=== PATIENT | male | born 1985 | race Caucasian/White ===

== ENCOUNTER → 2020-09-21 00:42 | Outpatient (CLI) | payer BC, SELFPAY ==
[2020-09-21 20:46] LABS: SARS-CoV-2 RNA PCR Negative
== END ==
PROVIDERS: Visit Provider Internal Medicine Gastroenterology
DX: Z01.812 Encounter for preprocedural laboratory examination (principal); Z20.822 Contact with and (suspected) exposure to COVID-19
CPT/HCPCS: C9803; U0003; U0005

== ENCOUNTER 2020-09-24 01:19 | Day surgery (SDC) | payer BC, SELFPAY ==
[2020-09-10 13:10] VITALS: BMI 34.3
[2020-09-24 08:19] VITALS: BP 121/74; PULSE 59; RESP 16; TEMP 35.5; O2SAT 98; BMI 35.4
[2020-09-24] MEDS: LACTATED RINGERS 1,000 ML 150 ML IV CONT (08:26)
--- NOTE | 2020-09-24 09:28 | P.PNAN_ITS ---
Anes - Initial Pre Proc Eval Procedure: Operation Date: 09/24/20 09:30 Proposed Procedures p Esophagogastroduodenoscopy - Reece Murguia MD Date/Time: 09/24/20 09:28 Surgeon: Reece Murguia MD Pre Op Diagnosis: GErD Patient Data Age: 34 Gender: M Height: 6 ft 1 in Weight: 121.6 kg Last Vital Signs Temp 96 F L 09/24/20 08:19 Pulse 59 L 09/24/20 08:19 Resp 16 09/24/20 08:19 BP 121/74 09/24/20 08:19 Pulse Ox 98 09/24/20 08:19 Allergies Allergy/AdvReac Type Severity Reaction Status Date / Time No Known Allergies Allergy Mild Verified 09/24/20 08:18 Home Medications Medication Instructions Recorded Confirmed Type esomeprazole magnesium [Nexium] 20 mg PO DAILY 09/10/20 09/24/20 History Patient hx anesthesia problems: none Family hx anesthesia problems: none [facility] Past Medical History Medical History (Updated 09/24/20 @ 09:24 by Buck Moore MD) GERD (gastroesophageal reflux disease) Social History Social History (Updated 09/10/20 @ 13:09 by Kirsty Prieto RN) Smoking packs per day: 0.5 Smoking cigarettes per day: 10.0 Years smoked: 10 Smoking pack-years: 5.00 Smoking status: Former smoker Tobacco type: cigarettes Second hand tobacco smoke exposure: No Alcohol intake: current Substance use: never Substance use type: does not use Living arrangements: with family Gender identity (if verbalized by the patient): Male Sexual Orientation (if Verbalized by the Patient): Straight or Heterosexual Spiritual care concerns: No Agree to blood products: Yes Anes - Eval Final PreProcedure Day of Procedure 09/24/20 09:28 Patient weight: obese Heart: regular rate and rhythm Lungs: clear to auscultation Airway: Mallampati scale class II Neurological: alert and oriented Last oral intake: >/= 8 hours ASA classification: III Emergent: no Anesthetic plan: proceed Anesthesia type and monitoring: general GIVS and standard monitoring Informed Consent: The patient's anesthetic plan and its attendant risks and benefits were discussed with the patient/family/POA. Questions were solicited and answers provided to the satisfaction of the patient/family/POA.
--- NOTE | 2020-09-24 09:37 | PM.HPGS ---
History of Present Illness History of Present Illness Consent: Risks, benefits, and alternatives have been discussed and questions answered. Patient agrees to proceed with procedure. Chief complaint: GErD Narrative: Andrew Villafana is a 34 year old male with gerd only partially controlled with nexium, never had egd Review of Systems Constitutional: Constitutional: Denies headache(s) and Denies weakness Eyes: Eyes: Denies blurry vision ENT: Reports Normal hearing present, Denies headache(s) and Denies neck pain Cardiovascular: Cardiovascular: Denies chest pain and Denies dyspnea Respiratory: Respiratory: Denies dyspnea Gastrointestinal: Gastrointestinal: Reports no additional gastrointestinal complaints Genitourinary: Genitourinary: Denies dysuria Musculoskeletal: Musculoskeletal: Denies neck pain Integumentary/Breasts: Skin/Breast: Denies dry skin Neurologic: Reports Normal hearing present, Denies headache(s) and Denies weakness Psychiatric: Psychiatric: Denies anxiety Endocrine: Endocrine: Denies change in body appearance Hematologic/Lymphatic: Hematologic/Lymphatic: Denies easy bleeding Allergic/Immunologic: Allergic/Immunologic: Denies urticaria PMFSH Past Medical History Medical History (Updated 09/24/20 @ 09:38 by Reece Murguia MD) GERD (gastroesophageal reflux disease) Social History Social History (Updated 09/10/20 @ 13:09 by Kirsty Prieto RN) Smoking packs per day: 0.5 Smoking cigarettes per day: 10.0 Years smoked: 10 Smoking pack-years: 5.00 Smoking status: Former smoker Tobacco type: cigarettes Second hand tobacco smoke exposure: No Alcohol intake: current Substance use: never Substance use type: does not use Living arrangements: with family Gender identity (if verbalized by the patient): Male Sexual Orientation (if Verbalized by the Patient): Straight or Heterosexual Spiritual care concerns: No Agree to blood products: Yes Meds Home Medications and Allergies Home Medications Medication Instructions Recorded Confirmed Type esomeprazole magnesium [Nexium] 20 mg PO DAILY 09/10/20 09/24/20 History Allergies Allergy/AdvReac Type Severity Reaction Status Date / Time No Known Allergies Allergy Mild Verified 09/24/20 08:18 Vital Signs Vital Signs - 24 hr 09/24/20 08:19 Temperature 96 F L Pulse Rate 59 L Respiratory Rate 16 Blood Pressure 121/74 Pulse Oximetry 98 Exam Const: General: comfortable and no acute distress HENMT: General nose exam: Normal nares present Eyes: General: appearance normal, both eyes and all related structures Neck: Neck: no JVD Resp: Auscultation: clear to auscultation bilaterally Cardio: Rate: regular rate Rhythm: regular rhythm GI: Inspection: non-distended GI Palp: Yes Soft to palpation Skin: General skin exam: normal color Neuro: General: gait normal Speech: normal speech Extrem: General: normal to inspection Psych: Mental Status: mental status grossly normal Assessment and Plan Assessment and plan (1) GERD (gastroesophageal reflux disease): Code(s): K21.9 - Gastro-esophageal reflux disease without esophagitis Status: Inactive Assessment and Plan: egd with bx, already on ppi
[2020-09-24 09:58] VITALS: BP 103/59; PULSE 58; RESP 22; O2SAT 98
[2020-09-24 10:08] VITALS: BP 115/70; PULSE 62; RESP 18; O2SAT 98
[2020-09-24 10:18] VITALS: BP 118/66; PULSE 59; RESP 20; O2SAT 99
== END 2020-09-24 10:26 | disposition home or self-care (01) ==
PROVIDERS: PCP Emergency Medicine; Visit Provider Internal Medicine Gastroenterology
PROC: 0DJ08ZZ Inspection of Upper Intestinal Tract, Via Natural or Artificial Opening Endoscopic (ICD-10-PCS; CPT 43235; principal; 2020-09-24 09:30)
DX: K21.9 Gastro-esophageal reflux disease without esophagitis (principal); K44.9 Diaphragmatic hernia without obstruction or gangrene; Z87.891 Personal history of nicotine dependence; E66.9 Obesity, unspecified; Z68.35 Body mass index [BMI] 35.0-35.9, adult
CPT/HCPCS: 43239; 88305; C9803; J2704; J7120; U0003; U0005

== ENCOUNTER 2023-06-18 13:21 | Emergency (ER) | payer BC, SELFPAY ==
--- NOTE | ~2023-06-18 | XR_ITS ---
XR forearm RT 2V 06/18/2023 14:06 INDICATION: Right arm pain after fall PROCEDURE: 2 views right forearm COMPARISON: 05/23/2005 FINDINGS: Fracture, dislocation or subluxation is not identified. The soft tissues appear within norm al limits. No foreign bodies are identified. IMPRESSION: 1: NO ACUTE BONE OR JOINT ABNORMALITY IDENTIFIED. Reviewed, dictated and finalized at location B. [employer]
[2023-06-18 13:30] VITALS: BP 131/102; PULSE 103; RESP 16; TEMP 37; O2SAT 97
--- NOTE | 2023-06-18 13:32 | ED.UPPEXIN ---
HPI - Extremity Injury (Upper) General Chief Complaint: Extremity Injury, Upper Stated Complaint: Injured arm Time Seen by Provider: 06/18/23 13:32 Source: patient Mode of arrival: ambulatory Limitations: no limitations History of Present Illness HPI narrative: 37-year-old male presents with pain to right forearm and right elbow. And states he slipped on ice this morning and fell on to right forearm. When moving right forearm patient has radiation of pain into right elbow. Ambulatory with steady gait. Denies his head. Denies LOC. All systems reviewed and negative except as noted above. Related Data Home Medications Medication Instructions Recorded Confirmed esomeprazole magnesium 20 mg 20 mg PO DAILY 09/10/20 09/24/20 capsule,delayed release (Nexium) Allergies Allergy/AdvReac Type Severity Reaction Status Date / Time No Known Allergies Allergy Mild Verified 09/24/20 08:18 Review of Systems Review of Systems: CONSTITUTIONAL: Denies fever, chills, or sweats. EYES: Denies visual changes, redness, or discharge. ENT: Denies rhinorrhea, congestion, sore throat, or otalgia. CARDIOVASCULAR: Denies chest pain, palpitations, or edema. RESPIRATORY: Denies cough or dyspnea. GASTROINTESTINAL: Denies abdominal pain, nausea, vomiting, or diarrhea. GENITOURINARY: Denies dysuria or hematuria. SKIN: Denies rash or itching. MUSCULOSKELETAL: Reports pain to right forearm. NEUROLOGIC: Denies headache, numbness, or weakness. PSYCHIATRIC: Denies anxiety or depression. All other systems reviewed are negative, except as documented in HPI. [facility] Past Medical History Medical History (Updated 06/18/23 @ 14:31 by Diana Chan NP) GERD (gastroesophageal reflux disease) Social History Social History (Updated 09/10/20 @ 13:09 by Kirsty Prieto RN) Smoking packs per day: 0.5 Smoking cigarettes per day: 10.0 Years smoked: 10 Smoking pack-years: 5.00 Smoking status: Former smoker Tobacco type: cigarettes Second hand tobacco smoke exposure: No Alcohol intake: current Alcohol use details: Drinks socially-rare. Substance use: never Substance use type: does not use Living arrangements: with family Occupation/Education: occupation Gender identity (if verbalized by the patient): Male Sexual Orientation (if Verbalized by the Patient): Straight or Heterosexual Spiritual care concerns: No Agree to blood products: Yes Comments At time of signature, agree with nursing past medical, surgical, social and family history. There is no relevant family history pertinent to the presenting complaint. Exam Narrative: GENERAL: This is a well-nourished, well-developed patient, in no apparent distress. HEAD: normocephalic, atraumatic. EYES: PERRL. Sclera clear/white. Vision is grossly intact. EARS: External ears normal NOSE: External nose normal NECK: Neck supple, non-tender without lymphadenopathy, masses or thyromegaly. CARDIOVASCULAR: Regular rate and rhythm without murmurs, gallops, or rubs. RESPIRATORY: Clear to auscultation. Breath sounds equal bilaterally. No wheezes, rales, or rhonchi. SKIN: warm, Dry, intact with no suspicious lesions or rash, good texture and turgor. NEURO: awake, alert, and oriented to person, place and time. There were no obvious focal neurologic abnormalities. EXTREMITIES: Tenderness on palpation to ulnar aspect right arm. Normal range of motion to right elbow and wrist without tenderness. Distal neurovascularly intact. Course Course Level of Care: Express Care Visit Vital Signs Vital signs: Vital Signs Temperature 37.0 C 06/18/23 13:30 Pulse Rate 103 H 06/18/23 13:30 Respiratory Rate 16 06/18/23 13:30 Blood Pressure 131/102 H 06/18/23 13:30 Pulse Oximetry 97 06/18/23 13:30 Temperature 37.0 C 06/18/23 13:30 Pulse Rate 103 H 06/18/23 13:30 Respiratory Rate 16 06/18/23 13:30 Blood Pressure 131/102 H 06/18/23 13:30 P
== END 2023-06-18 14:32 | disposition home or self-care (01) ==
PROVIDERS: Emergency Provider Nurse Practitioner Family
DX: S56.911A Strain of unspecified muscles, fascia and tendons at forearm level, right arm, initial encounter (principal); W00.0XXA Fall on same level due to ice and snow, initial encounter; Z87.891 Personal history of nicotine dependence; K21.9 Gastro-esophageal reflux disease without esophagitis
CPT/HCPCS: 73090; 99213; G0463

== ENCOUNTER 2025-01-10 12:32 | Emergency (ER) | payer BC, SELFPAY ==
[2025-01-10 12:43] VITALS: BP 124/83; PULSE 80; RESP 16; TEMP 36.5; O2SAT 99
--- NOTE | 2025-01-10 12:50 | ED_ITS ---
HPI - Dental/Oral General Chief complaint: Dental/Oral Stated complaint: JAW SWELLING/PAIN Time Seen by Provider: 01/10/25 12:50 Source: patient Mode of arrival: ambulatory Limitations: no limitations History of Present Illness HPI Narrative: 39-year-old male presents with right lower dental pain for 3 days. Called dentist today and unable to see him for emergency visit. Patient is aware that he has a wisdom tooth where pain is. He was waiting for it to erupt and be pulled. Afebrile. All systems reviewed and negative except as noted above. Related Data Home Medications ?Medication ?Instructions ?Recorded ?Confirmed ?Last Taken ?Type esomeprazole magnesium 20 mg 20 mg PO DAILY 09/10/20 09/24/20 09/23/20 History capsule,delayed release (Nexium) Allergies Allergy/AdvReac Type Severity Reaction Status Date / Time No Known Allergies Allergy Mild Verified 01/10/25 12:56 [facility] Past Medical History Medical History (Updated 01/10/25 @ 12:53 by Diana Chan NP) GERD (gastroesophageal reflux disease) Social History Social History (Updated 09/10/20 @ 13:09 by Kirsty Prieto RN) Smoking packs per day: 0.5 Smoking cigarettes per day: 10.0 Years smoked: 10 Smoking pack-years: 5.00 Smoking status: Former smoker Tobacco type: cigarettes Second hand tobacco smoke exposure: No Alcohol intake: current Alcohol use details: Drinks socially-rare. Substance use: never Substance use type: does not use Living arrangements: with family Occupation/Education: occupation Gender identity (if verbalized by the patient): Male Sexual Orientation (if Verbalized by the Patient): Straight or Heterosexual Spiritual care concerns: No Agree to blood products: Yes Comments At time of signature, agree with nursing past medical, surgical, social and family history. There is no relevant family history pertinent to the presenting complaint. Exam Narrative: GENERAL: This is a well-nourished, well-developed patient, in no apparent distress. HEAD: normocephalic, atraumatic. EYES: PERRL. Sclera clear/white. Vision is grossly intact. EARS: External ears normal NOSE: External nose normal MOUTH: IMPACTED WISDOM TOOTH RIGHT LOWER WITH SURROUNDING ERYTHEMA AND FLUCTUANCE. NECK: Neck supple, non-tender without lymphadenopathy, masses or thyromegaly. CARDIOVASCULAR: Regular rate and rhythm without murmurs, gallops, or rubs. RESPIRATORY: Clear to auscultation. Breath sounds equal bilaterally. No wheezes, rales, or rhonchi. SKIN: warm, Dry, intact with no suspicious lesions or rash, good texture and turgor. NEURO: awake, alert, and oriented to person, place and time. There were no obvious focal neurologic abnormalities. EXTREMITIES: No joint tenderness, effusion, or edema noted. Course Course Level of Care: Express Care Visit Vital Signs Vital signs: Vital Signs Temperature 36.5 C 01/10/25 12:43 Pulse Rate 80 01/10/25 12:43 Respiratory Rate 16 01/10/25 12:43 Blood Pressure 124/83 01/10/25 12:43 Pulse Oximetry 99 01/10/25 12:43 Temperature 36.5 C 01/10/25 12:43 Pulse Rate 80 01/10/25 12:43 Respiratory Rate 16 01/10/25 12:43 Blood Pressure 124/83 01/10/25 12:43 Pulse Oximetry 99 01/10/25 12:43 Reviewed MDM - Dental/Oral MDM Narrative Medical decision making narrative: Will treat right dental abscess with clindamycin. Recommend follow-up with dentist. Patient is well-appearing, nontoxic. Afebrile. Differential Diagnosis Differential diagnosis: Likely gingival abscess, dental caries, toothache and dental abscess Discharge Plan Discharge Clinical Impression: Dental infection Patient Disposition: Home Condition: Stable Instructions: Antibiotic Form, Dental Abscess (ED) Additional Instructions: Take antibiotic as prescribed until gone. Alternate between ibuprofen and Tylenol every 4 hours to treat pain. Follow-up with dentist at next available appointment. Patient Language: Togolese Prescriptions: New clindamycin HCl 300 mg capsule 300 mg PO QID 10 Days Qty: 40 0RF No Action esomeprazole magnesium [Nexium] 20 mg Capsule,Delayed Release(Dr/Ec) 20 mg PO DAILY Follow-up/Referrals: Corby,CLARITA Jones [Primary Care Provider] - Time of Disposition: 12:53
== END 2025-01-10 12:57 | disposition home or self-care (01) ==
PROVIDERS: Emergency Provider Nurse Practitioner Family; PCP Nurse Practitioner Family
DX: K04.7 Periapical abscess without sinus (principal); K21.9 Gastro-esophageal reflux disease without esophagitis; Z87.891 Personal history of nicotine dependence
CPT/HCPCS: 99213; G0463

== ENCOUNTER 2025-04-09 08:33 | Emergency (ER) | payer BC, SELFPAY ==
--- NOTE | 2025-04-09 08:38 | ED_ITS ---
HPI - General Adult General Chief complaint: Syncope Stated complaint: PASSED OUR/BACK&WRIST INJURY/FINGERS TINGLING Source: patient and RN notes reviewed Mode of arrival: ambulatory Limitations: no limitations History of Present Illness HPI narrative: Patient is a 39-year-old male who presents to the [facility] with complaints of syncopal episode. Patient states that he was at the gym with a friend, lifting weights. Patient states that he was squatting with 250 lb weights, which is not his limit. Patient states that he was getting ready to start his second set when he must have had a syncopal episode. Patient does not remember the event/loss of consciousness. Patient states that his friend witnessed the event. Denies prior syncope episodes. Denies any past medical history. Patient denies chest pain or dizziness at this time. He is alert and oriented with no obvious neurological deficits. Patient states that he is experiencing generalized back pain as a result of the syncope. He is also experiencing right wrist pain. States that he has tingling to bilateral hands/fingers. Denies numbness. Related Data Home Medications ?Medication ?Instructions ?Recorded ?Confirmed ?Last Taken ?Type esomeprazole magnesium 20 mg 20 mg PO DAILY 09/10/20 1 06/09/24 09/23/20 History capsule,delayed release (Nexium) Allergies Allergy/AdvReac Type Severity Reaction Status Date / Time No Known Allergies Allergy Mild Verified 04/09/25 08:44 Review of Systems Review of Systems: CONSTITUTIONAL: Denies fever, chills, or sweats. EYES: Denies visual changes, redness, or discharge. ENT: Denies otalgia and sore throat CARDIOVASCULAR: Denies chest pain, palpitations, or edema. RESPIRATORY: Denies cough or dyspnea. GASTROINTESTINAL: Denies abdominal pain, nausea, vomiting, or diarrhea. GENITOURINARY: Denies dysuria or hematuria. SKIN: Denies rash or itching. MUSCULOSKELETAL: Reports back pain and right wrist pain. NEUROLOGIC: Reports syncope. Denies numbness or headache. Pertinent positives per HPI. [facility] Past Medical History Medical History GERD (gastroesophageal reflux disease) Social History Social History Smoking packs per day: 0.5 Smoking cigarettes per day: 10.0 Years smoked: 10 Smoking pack-years: 5.00 Smoking status: Former smoker Tobacco type: cigarettes Second hand tobacco smoke exposure: No Alcohol intake: current Alcohol use details: Drinks socially-rare. Substance use: never Substance use type: does not use Living arrangements: with family Occupation/Education: occupation Gender identity (if verbalized by the patient): Male Sexual Orientation (if Verbalized by the Patient): Straight or Heterosexual Spiritual care concerns: No Agree to blood products: Yes Comments At the time of my signature, I reviewed and agree with the nursing past medical, surgical, social, and family history. There is no relevant family history pertinent to the patient complaint. Exam Narrative: GENERAL: This is a well-nourished, well-developed patient, in no apparent distress. HEAD: normocephalic, atraumatic. EYES: Sclera clear/white. Vision is grossly intact. EARS: External ears normal. Hearing grossly intact. NOSE: External nose normal with no obvious nasal discharge, nares without redness, no rhinorrhea. THROAT: Mucous membranes moist. NECK: Neck supple, non-tender without lymphadenopathy, masses or thyromegaly. CARDIOVASCULAR: Regular rate and rhythm without murmurs, gallops, or rubs. RESPIRATORY: Clear to auscultation. Breath sounds equal bilaterally. No wheezes, rales, or rhonchi. GASTROINTESTINAL: Abdomen soft, non-tender, nondistended. Bowel sounds are active. No hepato-splenomegaly, or palpable masses. No guarding. SKIN: warm, intact with no suspicious lesions or rash, good texture and turgor. NEURO: awake, alert, and oriented to person, place and time. There were no obvious focal neurologic abnormalities. Course Course Level of Care: Express Care Visit Vital Signs Vital signs: Reviewed Transfer Transfered to: [facility] Transportation: Other (Private vehicle, denied EMS) Transfer rationale: Syncop. Appropriate testing and treatment. Accepting physician: MD Fred Medical Decision Making [facility] Narrative Medical decision making narrative: EKG normal sinus. Blood glucose 98 via fingerstick at bedside. Patient presents to the [facility] Care after a syncopal episode. Patient will be transferred to [facility] the ED for appropriate testing and treatment for his complaint. Report was given to Dr. Ibarra who accepted patient for transfer. Differential Diagnosis Differential Diagnosis: Syncope, vasovagal syncope, acute coronary syndrome, NM, dehydration, electrolyte imbalance, hypoglycemia. ECG Data EKG #1: ECG completion date: 04/09/25 ECG completion time: 08:55 Interpretation: Normal sinus rhythm with ventricular rate of 81 beats per minute. Normal axis, normal intervals, no acute ischemic pattern. Critical Care Time Critical Care Time Critical Care Time: No Discharge Plan Discharge Clinical Impression: Syncope Qualifiers: Syncope type: unspecified Qualified Code(s): R55 - Syncope and collapse Patient Disposition: Acute Care Hospital Condition: Stable Additional Instructions: Go directly to [facility] ED. Patient Language: Latvian Prescriptions: No Action esomeprazole magnesium [Nexium] 20 mg Capsule,Delayed Release(Dr/Ec) 20 mg PO DAILY Follow-up/Referrals: Corby,CLARITA Jones [Primary Care Provider, Unknown] Time of Disposition: 08:56
--- NOTE | 2025-04-09 08:42 | ECG_ITS ---
Test Date: 2025-04-09 08:55:15 Measurements Intervals [place] Rate: 81 P: 52 MI: 138 QRS: 81 QRSD: 106 T: 63 QT: 339 QTc: 394 Interpretive Statements SINUS RHYTHM No previous ECG available for comparison Electronically Signed On 04-09-2025 12:31:02 [employer] by Cristino Bryan M.D.
[2025-04-09 08:45] VITALS: BP 142/92; PULSE 89; RESP 16; TEMP 36.8; O2SAT 99
[2025-04-09 09:06] VITALS: BP 141/126; PULSE 79
[2025-04-09 09:07] VITALS: BP 128/85; BP 140/89; PULSE 87; PULSE 97
== END 2025-04-09 09:06 | disposition short-term general hospital (02) ==
PROVIDERS: Emergency Provider Nurse Practitioner; PCP Nurse Practitioner Family
DX: R55 Syncope and collapse (principal); K21.9 Gastro-esophageal reflux disease without esophagitis; Z87.891 Personal history of nicotine dependence
CPT/HCPCS: 82948; 93005; 99213; G0463

== ENCOUNTER 2025-04-09 09:30 | Emergency (ER) | payer BC, SELFPAY ==
[2025-04-09] VITALS (9 sets, daily range): BP systolic 102–147; BP diastolic 69–82; PULSE 70–94; RESP 15–20; TEMP 36.8; O2SAT 99–100
--- NOTE | ~2025-04-09 | CT_ITS ---
EXAMINATION: CT cervical spine wo con COMPARISON: None HISTORY: trauma TECHNIQUE: Axial images were obtained through the spine without IV contrast. Coronal, sagittal reconstruction images were obtained from the axial views. CT scan performed using dose optimization techniques including the following automated exposure control; adjustment of mA and/or kV; use of iterative reconstruction technique. Automatic exposure control was used to reduce radiation dose. Permanent radiation dose record is archived to PACS. FINDINGS: The vertebral heights are intact. No fracture or subluxation. The disc heights are intact. Soft tissues unremarkable. Impression: No acute abnormality. Reviewed, dictated and finalized at location P. LATION WORKER Impression: No acute abnormality.
--- NOTE | ~2025-04-09 | CT_ITS ---
EXAMINATION: CT thoracic spine wo con COMPARISON: None HISTORY: trauma TECHNIQUE: Axial images were obtained through the spine without IV contrast. Coronal, sagittal reconstruction images were obtained from the axial views. CT scan performed using dose optimization techniques including the following automated exposure control; adjustment of mA and/or kV; use of iterative reconstruction technique. Automatic exposure control was used to reduce radiation dose. Permanent radiation dose record is archived to PACS. FINDINGS: Mild to moderate loss of vertebral height throughout, no acute fracture or subluxation. Moderate loss of disc height at T9-10, T10-11, T11-12 and T12-L1 however there is no severe canal or foraminal stenosis identified. Soft tissues unremarkable. Impression: No acute abnormality. Reviewed, dictated and finalized at location P. NE PHARMACOLOGY TECHNICIAN Impression: No acute abnormality.
--- NOTE | ~2025-04-09 | CT_ITS ---
EXAMINATION: CT brain wo con COMPARISON: None HISTORY: trauma TECHNIQUE: Axial images were obtained through the brain without IV contrast. CT scan performed using dose optimization techniques including the following automated exposure control; adjustment of mA and/or kV; use of iterative reconstruction technique. Automatic exposure control was used to reduce radiation dose. Permanent radiation dose record is archived to PACS. FINDINGS: No acute infarct or parenchymal hemorrhage. No abnormal mass or mass effect. No midline shift. No extra-axial fluid collections. No hydrocephalus. . Mastoid air cells unremarkable. Sinuses and orbits unremarkable. No acute fracture. No significant facial or scalp soft tissue swelling evident. No radiopaque foreign body is seen. Impression: 1.No acute intracranial abnormality. Reviewed, dictated and finalized at location P. VIEW DEVELOPER Impression: 1.No acute intracranial abnormality.
--- NOTE | ~2025-04-09 | XR_ITS ---
EXAMINATION: XR chest 2V, 04/09/2025 9:55 DIAMOND MERCHANT HISTORY: syncope NO PRIOR HX COMPARISON: No comparisons available. Technique: 2 views obtained. Findings: The lungs are clear, no effusion. No pneumothorax. Heart is normal size. Mediastinal and hilar contours are within normal limits. Bony thorax no acute abnormality. Impression: No acute cardiopulmonary abnormality. Reviewed, dictated and finalized at location P. OND MERCHANT Impression: No acute cardiopulmonary abnormality.
--- NOTE | 2025-04-09 09:34 | ECG_ITS ---
Test Date: 2025-04-09 09:40:56 Measurements Intervals [place] Rate: 83 P: 59 VA: 136 QRS: 77 QRSD: 97 T: 54 QT: 341 QTc: 402 Interpretive Statements SINUS RHYTHM Compared to ECG 04/09/2025 08:55:15 No significant changes Electronically Signed On 04-09-2025 12:31:30 [employer] by Cristino Bryan M.D.
[2025-04-09 09:53] LABS: Hematocrit 51.8 % (42.0-52.0); Hemoglobin 17.1 g/dL (14.0-18.0); Immature Granulocyte Percent A 0.3 % (0-0.5); Lymphocytes Absolute Auto 1.37 K/mm3 (0.9-3.2); Mean Corpuscular HGB Conc 33.0 g/dl (32-36); Mean Corpuscular Hemoglobin 28.5 pg (26-34); Mean Corpuscular Volume 86.2 fl (80-100); Nucleated Red Blood Cells Absolute Auto 0.000 K/mm3 (0.0-0.012); Nucleated Red Blood Cells Perc 0.0 % (0.0-0.2); Platelet Count Result 257 k/mm3 (150-375); Red Blood Count 6.01 M/mm3 (4.6-6.20); White Blood Count 5.9 K/mm3 (4.5-10.0)
--- OUTSIDE RECORDS SUMMARY | 2025-04-09 10:06 | XMS_ITS | Clinical Summary ---
[facility] Address [address] [place] [address] Care Team Providers Care Machine Ceramic Coater Name Role Phone Lexus Tavarez NP Primary Care Provider [phone] Allergies No known active allergies Medications esomeprazole DR (NexIUM) 40 mg capsule Take 1 capsule (40 mg total) by mouth daily before breakfast Active ergocalciferol (VITAMIN D) 50,000 unit capsule TAKE 1 CAPSULE BY MOUTH ONE TIME PER WEEK 12 capsule 4 Active testosterone cypionate, bulk, 100 % powder 0 5 Active testosterone enanthate, bulk, 100 % powder 0 5 Active testosterone propionate, bulk, powder 0 5 Active benzonatate (TESSALON) 200 mg capsuleIndications :Influenza A Take 1 capsule (200 mg total) by mouth 3 (three) times a day as needed for cough 30 capsule 5 Active albuterol HFA (PROVENTIL HFA,VENTOLIN HFA,PROAIR HFA) 90 mcg/actuation inhalerIndications :Influenza A Inhale 2 puffs every 6 (six) hours as needed for wheezing or shortness of breath 1 each 5 Active methylphenidate ER (CONCERTA) 36 mg CR tabletIndications: Attention-Deficit Hyperactivity Disorder Take 1 tablet (36 mg total) by mouth every morning 30 tablet 5 Active Active Problems Problem Noted Date Diagnosed Date Arthralgia of knee 05/19/2024 Overview (05/19/2024): secondary to the congenital tibia tubercle bony mass (OS) Hypesthesia 05/19/2024 Localized pain 05/19/2024 Patellar tendinitis 05/19/2024 Refractive error 05/19/2024 Rotator cuff tendinitis 05/19/2024 Attention deficit hyperactiv ity disorder (ADHD), predominantly inattentive type 09/24/2023 Assessment & Plan (05/19/2024 8:23 AM EQUIPMENT RECORDS SUPERVISOR): Metadate ER is not lasting all day. Change to Concerta 36 mg once daily. I asked him to keep me updated on how he is doing with the new formulation. If needed we could add 5 or 10 mg of methylphenidate in the afternoon. Follow-up in 4 months Assessment & Plan (09/24/2023 10:33 AM CDT): Already diagnosed and was diagnosed as a child. Will restart methylphenidate ER 20 mg once daily. He had been doing well with Ritalin ER earlier this year. Will have him send me an update on how he is doing with this medication in 1 month and ask for refill. If he needs any adjustments or problems with medications I will ask him to come in otherwise can follow-up in 6 months. I checked their [place] [employer] sheet, and it was consistent with prescribed medications. Mixed hyperlipidemia 09/24/2023 Assessment & Plan (09/24/2023 10:34 AM CDT): Reviewed cholesterol results. LDL in the 160s. Reviewed low-cholesterol diet and dietary guidelines with him. Recommended lifestyle changes. Will have him follow-up in 6 months with repeat labs Annual physical exam 08/26/2023 Assessment & Plan (08/26/2023 8:05 PM CDT): -Recommended: Healthy diet. Avoiding junk food/fast food. -30 minutes of exercise most days of the week. Increase to 45 minutes for weight loss. Health Maintenance reviewed - recommended tetanus shot gets cuts or scrapes. -Influenza vaccine every year Recommend: - Topic Date Due DTaP/Tdap/Td Vaccine (1 - Tdap) Never done Varicella Vaccines (1 of 2 - 13+ 2-dose series) Never done -F/u in 1 year for Annual PE or sooner if needed = screening labs as ordered Fatigue 08/26/2023 Assessment & Plan (08/26/2023 8:05 PM CDT): check labs as ordered Low testosterone in male 08/26/2023 Assessment & Plan (09/24/2023 10:33 AM CDT): Reviewed low testosterone in labs. Has been referred to Dr. Castellon and he has appointment pending in October Assessment & Plan (08/26/2023 8:05 PM CDT): History of low testosterone. Will check testosterone level. If low will refer to Urology Myalgia 08/26/2023 Assessment & Plan (08/26/2023 8:06 PM CDT): Will check ARTEMIO Gastroesophageal reflux disease without esophagi tis 08/26/2023 Assessment & Plan (08/26/2023 8:07 PM CDT): Stable on current medication. Continue Nexium as ordered. May follow up in 6 months Immunizations Immunization Administration Dates Next Due Hep A / Hep B 09/05/2005,08/07/2005 Influenza LAIV (Nasal) 02/27/2007,03/07/2006 Influenza, Split 08/04/2005 Influenza, Unspecified 08/22/2023(Deferr ed: Patient Refused),05/28/2022(Deferred: Patient Refused) MMR 08/07/2005 Meningococcal MCV4P (Menactra) 08/04/2005 OPV 08/04/2005 Td, adsorbed 08/04/2005 Medical History Medical History Date Comments GERD (gastroesophageal reflux disease) Adhd Family History Relation Name Status Comments Brother Alive Father Alive Mother Alive Social History Tobacco Use Types Packs/Day Years Used Date Smoking Tobacco: Never Smokeless Tobacco: Never Tobacco Cessation:Counseling Given: Not Answered PHQ-2 Answer Date Recorded PHQ-2 Total Score (If total score is 3 or more points, staff should administer the PHQ-9) 0 08/22/2023 Sex and Gender Information Value Date Recorded Sex Assigned at Not on file Legal Sex Male 5:04 AM EQUIPMENT RECORDS SUPERVISOR Gender Identity Not on file Sexual Orientation Not on file Last Filed Vital Signs Vital Sign Reading Time Taken Comments Blood Pressure 131/84 07/27/2024 11:26 AM EQUIPMENT RECORDS SUPERVISOR Pulse 103 07/27/2024 11:26 AM EQUIPMENT RECORDS SUPERVISOR Temperature 37.2 C (99 F) 07/27/2024 11:26 AM EQUIPMENT RECORDS SUPERVISOR Respiratory Rate 16 07/27/2024 11:26 AM EQUIPMENT RECORDS SUPERVISOR Oxygen Saturation 99% 07/27/2024 11:26 AM EQUIPMENT RECORDS SUPERVISOR Inhaled Oxygen Concentration - - Weight 122.5 kg (270 lb) 07/27/2024 11:26 AM EQUIPMENT RECORDS SUPERVISOR Height 185.4 cm (6' 1) 07/27/2024 11:26 AM EQUIPMENT RECORDS SUPERVISOR Body Mass Index 35.62 07/27/2024 11:26 AM EQUIPMENT RECORDS SUPERVISOR Plan of Treatment Health Maintenance Due Date Last Done Comments DTaP/Tdap/Td Vaccine (1 - Tdap) 08/05/2005 08/04/2005 Varicella Vaccines (1 of 2 - 13+ 2-dose series) 03/27/2007 HPV Vaccines (1 - 3-dose SCD M series) 2013 Regular Well Visit/Exam 18-64 08/21/2024 08/22/2023 Depression Screening 09/23/2024 09/24/2023, 08/22/2023 Influenza Vaccine (#1) 2025 7, 03/07/2006, 08/04/2005 Hepatitis B Screening Completed 09/05/2005 , 08/07/2005 Hepatitis C Screening Completed 08/24/2023 Pneumococcal vaccine <65 Aged Out No longer eligible based on patient's age to complete this topic Procedures Procedure Name Priority Date/Time Associated Diagnosis Comments HEPATITIS C ANTIBODY Routine 08/24/2023 9:09 AM CDT Encounter for hepatitis C screening test for low risk patient from Last 3 Months or Most Recently Relevant to Health Maintenance Results * Hepatitis C antibody Blood (08/24/2023 9:09 AM CDT) Hep C Ab Nonreactive Nonreactive Comment: Interpretive Data Nonreactive: Antibodies to HCV not detected. Does NOT exclude the possibility of recent exposure to HCV. Equivocal: Equivocal for HCV antibodies. Supplemental molecular testing will be automatically performed to determine infection status in accordance with current CDC screening recommendations. Reactive: Positive for HCV antibodies. This may represent current or past HCV infection. Supplemental molecular testing will be automatically performed to determine current infection status in accordance with current CDC screening recommendations. Interpretive data was last revised on 2019. Blood 08/24/2023 9:09 AM CDT 08/24/2023 2:36 PM CDT Lexus Tavarez NP LAB MICROBIOLOGY - GENERAL OR DERABLES Final Result [facility] [address] Department [place] [address] from Last 3 Months or Most Recently Relevant to Health Maintenance Insurance [employer] Care Teams Machine Ceramic Coater Relationship Specialty Start Date End Date Lexus Tavarez NP [address] [facility] [address] [place] [address] PCP - General Family Medicine 11/06/24
--- OUTSIDE RECORDS SUMMARY | 2025-04-09 10:06 | XMS_ITS | Data Portability ---
Author Organization [place] - [facility], [employer] Address [address] [facility] [address] [place] [address] Assessment Encounter Date Assessment Date Assessment LastModified by Organization Details LastModified Time 10/13/2016 10/13/2016 Patient presented for follow up. Studies ordered as below. Discussed plan with patient/careg wilbert, who expressed understanding . Follow up as noted below. [email or web address] Not available 10/13/2016 12:33:59 08/21/2018 08/21/2018 Patient presented for follow up. Studies ordered as below. Discussed plan with patient/careg wilbert, who expressed understanding . Follow up as noted below. [email or web address] Not available 08/21/2018 18:24:19 Plan of Treatment Reminders Order Date Submit Date Provider Last Modified By Organization Details Last Modified Time Details Appointments None recorded. Lab urinalysis , dipstick [address] [facility], [address] [facility] [address] [place] [address], [place], [address], 9 19:16:32 lipid panel, serum 2018 019 [email or web address] Not available 9 12:06:23 CBC w/ auto diff 2018 019 [email or web address] Not available 9 12:06:24 CMP, serum or plasma 2018 019 [email or web address] Not available 9 12:06:24 TSH, serum or plasma 2018 019 [email or web address] Not available 9 12:06:24 glucose tolerance test, post-75G, 3 specimens 2018 019 [email or web address] Not available 9 12:06:24 hepatitis C Ab, serum 2018 019 [email or web address] Not available 9 12:06:24 H pylori Ag, qual immunoassa y, stool 2018 019 [email or web address] Not available 9 12:06:24 TSH, serum or plasma 2016 017 [email or web address] Not available 7 09:21:39 lipid panel, serum 2016 017 [email or web address] Not available 7 09:21:38 CMP, serum or plasma 2016 017 [email or web address] Not available 7 09:21:38 CBC w/ auto diff 2016 017 [email or web address] Not available 7 09:21:38 vitamin B12 + folate, serum or blood 2016 017 [email or web address] Not available 7 09:21:38 testostero ne, free + total, serum 2016 017 [email or web address] Not available 7 09:21:38 vitamin D2, 25-hydroxy , serum 2016 017 [email or web address] Not available 7 09:21:38 glucose tolerance test, post-75G, 3 specimens 2016 017 [email or web address] Not available 7 09:21:38 Referral optometris t referral 2018 019 [email or web address] MOVL [facility], [address] [place], [address], 9 10:48:24 optometris t referral 2016 017 [email or web address] [facility], [address] [place], [address], 7 08:22:52 Procedures None recorded. Surgeries None recorded. Imaging XR, lumbar spine 2018 019 [email or web address] [facility], [address], [place] [facility], [place], [address], 9 12:28:24 XR, chest, 2 view 2016 017 [email or web address] Not available 7 08:41:32 Medication Orders Tylenol Extra Strength 500 mg tablet 2018 019 [email or web address] Not available 9 19:06:08 ranitidine 150 mg tablet 2018 019 [email or web address] Not available 9 12:41:12 Patient TargetsNo targets recorded. Patient Instructions Encounter Date Encounter Id Patient Instructions Last Modified By Organization Details Last Modified Time 10/13/2016 [id number] When You Want to Lose Weight: Care Instructions JERRY Not available 10/15/2016 09:22:48 snoring: care instructions JERRY Not available 10/15/2016 09:22:49 home sleep testing* [email or web address] Not available 11/10/2016 08:22:48 08/21/2018 [id number] back care and preventing injuries: care instructions [email or web address] Not available 08/21/2018 19:03:55 getting back to normal after low back pain: care instructions [email or web address] Not available 08/21/2018 19:03:56 learning about relief for back pain [email or web address] Not available 08/21/2018 19:03:56 infection from tattoos: care instructions [email or web address] Not available 08/21/2018 19:03:56 snoring: care instructions [email or web address] Not available 08/21/2018 19:03:56 Reason for Referral [employer] Referral for Redi lt health examination Referring Physician: Karla Mosley, Internal Medicine, Encounter Date: 10/13/2016 [employer] Referral for [place] lt health examination Referring Physician: Karla Mosley, Internal Medicine, Encounter Date: 08/21/2018 Results Created Date Observation Date Name Description Value Unit Range Abnormal Flag Note LastModifiedBy Organization Detail LastModifiedTime 08/23/19 19 08/22/2018 urina lysis , dipst ick Leukocytes Negati ve Not Available [address] [place], [place], [address], 08/21/2018 19:00:35 08/23/19 19 08/22/2018 urina lysis , dipst ick Nitrite negati ve Not Available [address] [place], [place], [address], 08/21/2018 19:00:35 08/23/19 19 08/22/2018 urina lysis , dipst ick Urobilinogen .2 Not Available [address] [place], [place], [address], 08/21/2018 19:00:35 08/23/19 19 08/22/2018 urina lysis , dipst ick Protein Negati ve Not Available [address] [place], [place], [address], 08/21/2018 19:00:35 08/23/19 19 08/22/2018 urina lysis , dipst ick pH 6.0 Not Available [address] [place], [place], [address], 08/21/2018 19:00:35 08/23/19 19 08/22/2018 urina lysis , dipst ick Blood Negati ve Not Available [address] [place], [place], [address], 08/21/2018 19:00:35 08/23/19 19 08/22/2018 urina lysis , dipst ick Specific [place] 1.020 Not Available [place] [address] [place], [place], [address], 08/21/2018 19:00:35 08/23/19 19 08/22/2018 urina lysis , dipst ick Ketone Negati ve Not Available [address] [place], [place], [address], 08/21/2018 19:00:35 08/23/19 19 08/22/2018 urina lysis , dipst ick Bilirubin Negati ve Not Available [address] [place], [place], [address], 08/21/2018 19:00:35 08/23/19 19 08/22/2018 urina lysis , dipst ick Glucose Negati ve Not Available [address] [place], [place], [address], 08/21/2018 19:00:35 08/23/19 19 08/22/2018 urina lysis , dipst ick Appearance Clear Not Available [address] [place], [place], [address], 08/21/2018 19:00:35 08/23/19 19 08/22/2018 urina lysis , dipst ick Color Yellow Not Available [address] [place], [place], [address], 08/21/2018 19:00:35 10/14/19 17 01/04/2015 MRI, lumba r spine , w/o contr ast No observ ation record ed. [facility] [address], [place], [address], 08/21/2018 18:57:52 Result Notes None recorded. Problems Name Problem SNOMED Code Status Onset Date Resolution Date Notes Provider Name and Address Organization Details Recorded Time Family history of diabetes mellitus 638605354 Active 2016 MD Dmitry Lee [facility] [address] [place], [place], [address] , [facility] 7 13:17:24 Overweigh t 257629572 Active 2016 MD Dmitry Lee [facility] [address] [place], [place], [address] , [facility] 7 13:17:30 Tobacco dependenc e syndrome 80166183 Completed 201610/13/2016 Karla Mosley MD [address] [place], [place], [address] , [facility] 7 13:17:51 Ex-smoker 1770185 Active 2016 Karla Mosley MD [address] [place], [place], [address] , [facility] 7 13:17:58 Low back pain 003941506 Active 2018 MD Sajan Lee[address] [place], [place], [address] , [facility] 9 19:00:48 Tattoo of skin 26485014713 2 Active 2018 Karla Mosley MD [address] [place], [place], [address] , [facility] 9 19:00:54 Gastroeso phageal reflux disease without esophagit is 136943338 Active 2018 Karla Mosley MD [address] [place], [place], [address] , [facility] 9 19:01:00 Problem Notes None recorded. Medical Equipment None Reported. Allergies No known drug allergies Medications Name Sig Start Date Stop Date Status Note LastModified by Organization Details LastModified Time ranitidine 150 mg tablet Take 1 tablet twice a day by oral route. 09/09 completed Not Available Not Available Not Available omeprazole 20 mg capsule,del ayed release Take 1 capsule every day by oral route. 2018 active Not Available Not Available Not Avai lable amoxicillin 875 mg-potassiu m clavulanate 125 mg tablet Take 1 tablet every 12 hours by oral route. active Not Available Not Available No t Available Tylenol Extra Strength 500 mg tablet Take 1 tablet every 8 hours by oral route. 2018 active Not Available Not Available Not Avai lable neomycin-po lymyxin-hyd rocort 3.5 mg-10,000 unit/mL-1 % ear drops,susp INSTILL 4 DROPS INTO AFFECTED EAR(S) BY OTIC ROUTE 3 TIMES PER DAY active Not Available Not Available No t Available Vitals Date Recorded Body weight Heart rate Respiratory rate Body temperature Body mass index (BMI) Body height Systolic And Diastolic Provider Name and Address Organization Details Last Updated DateTime 9 408805. 94 g 78 /min 18 /min 97.6 [degF] 35.6 kg/m2 185.42 cm 137/85 mm[Hg] Altagracia Haidern [facility] 9 18:27:09 Date Recorded Systolic And Diastolic Provider Name and Address Organization Details Last Updated DateTime 10/13/2016 129/70 mm[Hg] Karla Mosley MD [address] [place], [place], [address] 10/13/2016 13:19:30 Date Recorded Body weight Body height Body mass index (BMI) Respiratory rate Body temperature Heart rate Provider Name and Address Organization Details Last Updated DateTime 7 668786. 32 g 185.42 cm 32.6 kg/m2 18 /min 97.9 [degF] 74 /min Jennjim Boydmarisol [facility] 7 12:36:49 Social History Question Answer Notes LastModified by Z[employer] Details LastModified Time Tobacco Smoking Status Former Smoker Karla Mosley MD [address] [place], [place], [address] 10/13/2016 13:18:46 Which Illicit Or Recreational Drugs Have You Used? No Information not available 10/13/2016 Live Alone Or With Others? With Others Information not available 10/13/2016 Marital Status Informatio n not available 10/13/2016 What Was The Date Of Your Most Recent Tobacco Screening? 08/21/2018 Information not available 12/18/2018 Sex: Unknown Functional Status Question Answer Note LastModified by [employer] Details LastModified Time What is your level of alcohol consumption? Occasional Information not available 10/13/2016 Are you currently employed? Yes Information not available 10/13/2016 Are you able to care for yourself independently? Yes Information not available 10/13/2016 Mental Status None recorded. Family History Relationship Description Onset Age of this Age Resolved Age Notes LastModified by Organization Details LastModified Time Mother Diabetes mellitus [email or web address] Not available 2016 13:18:15 Medical History No medical history recorded. Past Encounters Encounter ID Performer Location Encounter Start Date Encounter Closed Date Diagnosis/Indication Diagnosis SNOMED-CT Code Diagnosis ICD10 Code Diagnosis IMO Codes Diagnosis Note [id number] Karla Mosley MD [employer] [address] [address] 10/13/2016 12:24:59 10/13/2016 13:27:47 Adult health examination 851106389 Z00.00 Snoring 54181766 R06.83 Overweight 136362590 E66 .3 Family his tory of diabetes mellitus 505272998 Z83.3 Ex-smoker 8406921 Z87.89 1 Fatigue 94626358 R53.83 Active or passive immunization 943486113 Z23 [id number] Karla Mosley MD [employer] [address] [address] 08/21/2018 18:17:16 08/21/2018 19:06:51 Adult health examination 419686430 Z00.00 Ex-smoker 6363832 Z87.89 1 education Family his tory of diabetes mellitus 234532909 Z83.3 Snoring 11253282 R06.83 Gastroesop hageal reflux disease without esophagitis 323757450 K21.9 Tattoo of skin 713155356 1 02 L81.8 Influenza- like symptoms 971568792 R68.89 Low back pain 543980797 M54.5 Active or passive immunization 400897425 Z23 Health Concerns Section Related Observation LastModified by Organization Detai ls LastModified Time None Recorded Concern Status LastModified by Organization Details LastModified Time None Recorded Advance Directives Directive None Recorded Payers Insurance Date Sequence Insurance Name Policy Number Policy Rodrigez Covered Member ID Rodrigez Member ID Guarantor Name 08/21/2018 1 [facility] [id number] [facility] [id number] Andrew Villafana 08/21/2018 1 [facility] [id number] Andrew Grayer [id number] Andrew Villafana Notes Date Note Type Note Provider Name and Address Organization Details Recorded Time 10/13/2016 text/html Hypertension F/UReported by PatientHPIFor medications, patient reportstaking medications as directedandno side effects from medication. For lifestyle, patient reportsregular exercise,limiting/ralph iding salt, andcompliant with low salt diet. For associated symptoms, patient reportsno dizziness,no lightheadedness,no chest pain,no shortness of breath,no palpitations,no edema,no calf pain with exertion, andno headache. fatigue , snoring , not losing weight Karla Mosley MD [address] [facility] [address] [place], [place], [address], [facility] 10/13/2016 13:24:59 08/21/2018 text/html Medicare Annual Wellness VisitReported by PatientSocial/Behavio ral HistoryFor diet and nutrition, patient reportshealthy diet. For fracture risk, patient reportsno history of fractures,no recent explained fracture,no sudden unexplained fractures, andno previous musculoskeletal injuries. For physical activity, patient reportsrecent increase in physical activity,good physical condition, anddiscussed exercise habits.Mental Status:For depression risk, patient reportsnever feels sad, empty, or tearful,no loss of interest in activities,no significant changes in weight,no sleep disturbances or insomnia,no agitation,no loss of energy,no feelings of worthlessness or guilt,no thoughts of suicide,no history of depression, andno history of mood disorders. For orientation, patient reportsno disorientation to time,no disorientation to date, andno disorientation to place. For concentration and memory, patient reportsno decreased concentrating ability,no memory lapses or loss, anddoes not forget words. For speech/motor difficulties, patient reportsno speech difficulties,no difficulty expressing formulated concepts,no difficulty with fine manipulative tasks,no difficulty writing/copying,no slowed reaction time, anddoes not knock things over when trying to pick them up.Functional AbilityFor hearing, patient reportsno loss of hearing. For vision, patient reportsno vision problems. For activities of daily living, patient reportsable to bathe with limited or no assistance,able to contol urination and bowels,able to dress with limited or no assistance,able to feed self with limited or no assistance,able to get out of chair or bed with limited or no assistance,able to groom with limited or no assistance, andable to toilet with limited or no assistance. For instrumental activities of daily living, patient reportsable to do house work with limited or no assistance,able to grocery shop with limited or no assistance,able to manage medications with limited or no assistance,able to manage money with limited or no assistance,able to prepare meals with limited or no assistance, andable to use the phone with limited or no assistance. For falls risk assessment, patient reportsno frequent falls while walking,no fall in the past year, andno dizziness/vertigo. For home safety, patient reportsno vision or hearing loss while driving. Hypertension F/UReported by PatientHPIFor medications, patient reportstaking medications as directedandno side effects from medication. For lifestyle, patient reportsregular exercise,limiting/ralph iding salt, andcompliant with low salt diet. For associated symptoms, patient reportsno dizziness,no lightheadedness,no chest pain,no shortness of breath,no palpitations,no edema,no calf pain with exertion, andno headache. upper resp symptomes 5 days ?? FluLBP on and off 3 weeks Karla Mosley MD [address] [facility] [address], [place], [address], [facility] 08/21/2018 19:04:22
[2025-04-09 10:15] LABS: Alanine Aminotransferase 17 U/L (6-50); Albumin Level 4.7 g/dL (3.5-5.1); Alkaline Phosphatase 45 U/L (38-126); Anion Gap 6 mmol/L (4-12); Aspartate Amino Transferase 21 U/L (17-59); Bilirubin,Total 0.9 mg/dL (0.2-1.3); Blood Urea Nitrogen 13 mg/dL (9-20); Calcium 9.4 mg/dL (8.4-10.2); Carbon Dioxide 32 mmol/L (22-30); Chloride 101 mmol/L (98-107); Estimated CRCL calculation 89 ml/min; Estimated Glomerular Filt Rate > 60; Glucose 86 mg/dL (65-110); Potassium 4.3 mmol/L (3.4-5.0); Sodium 139 mmol/L (137-145); Total Protein 7.7 g/dL (6.3-8.2)
--- NOTE | 2025-04-09 12:17 | ECG_ITS ---
Test Date: 2025-04-09 12:18:38 Measurements Intervals [place] Rate: 74 P: 46 AK: 152 QRS: 68 QRSD: 94 T: 53 QT: 346 QTc: 385 Interpretive Statements SINUS RHYTHM Compared to ECG 04/09/2025 09:40:56 No significant changes Electronically Signed On 04-09-2025 12:35:08 RELAY WORKER by Cristino Bryan M.D.
[2025-04-09] MEDS: LACTATED RINGERS 1,000 ML 999 ML IV CONT ×2 (12:43→12:46)
--- NOTE | 2025-04-09 12:43 | ED_ITS ---
HPI - General Adult General Chief complaint: Syncope Stated complaint: syncope Time Seen by Provider: 04/09/25 11:56 History of Present Illness HPI narrative: 39-year-old male with no significant past medical history presented to the emergency department for evaluation after having a syncopal episode at the gym. Patient was doing squats and did finish 1 set but during his seconds said he had episode of lightheadedness patient then had a syncopal episode and needed to have the weight lifted off of him. Patient was doing a squat with the Free bar on his shoulders and neck. Patient states when he came to he did have some right wrist pain and lower back pain. Patient is unsure if he struck his head. Patient suspects he was unconscious for about 30 seconds. Patient does have a history of losing approximately 100 lb over the last year so this was intentional and secondary to improved diet and increased exercise. Patient denies any dietary supplements denies any hormone replacement. Patient denies any prior cardiac history denies any prior history of PE or DVT. Related Data Home Medications ?Medication ?Instructions ?Recorded ?Confirmed ?Last Taken ?Type esomeprazole magnesium 20 mg 20 mg PO DAILY 09/10/20 1 06/09/24 09/23/20 History capsule,delayed release (Nexium) Allergies Allergy/AdvReac Type Severity Reaction Status Date / Time No Known Allergies Allergy Mild Verified 04/09/25 08:44 Review of Systems 2 Review of Systems: All systems reviewed & are unremarkable except as noted in HPI and below PMFSH Past Medical History Medical History GERD (gastroesophageal reflux disease) Social History Social History Smoking packs per day: 0.5 Smoking cigarettes per day: 10.0 Years smoked: 10 Smoking pack-years: 5.00 Smoking status: Former smoker Tobacco type: cigarettes Second hand tobacco smoke exposure: No Alcohol intake: current Alcohol use details: Drinks socially-rare. Substance use: never Substance use type: does not use Living arrangements: with family Occupation/Education: occupation Gender identity (if verbalized by the patient): Male Sexual Orientation (if Verbalized by the Patient): Straight or Heterosexual Spiritual care concerns: No Agree to blood products: Yes Exam 2 Narrative: APPEARANCE: Well appearing, no pain, no distress, well-nourished. HEAD: normocephalic, atraumatic. EYES: PERRLA/EOMI, conjunctivae clear. NOSE: Normal no drainage EARS:TMS clear with good light reflex. THROAT: Pharynx clear, no exudate. NECK: Supple. No adenopathy, no masses. RESPIRATORY: Airway patent, respirations nonlabored. Clear to auscultation bilaterally, no rales, rhonchi, wheezing. CARDIOVASCULAR: Regular rate and rhythm without murmurs rubs or gallops. ABDOMINAL: Soft, nontender, nondistended, normal bowel sounds MUSCULOSKELETAL: Right lower back tenderness to palpation, paraspinal tenderness NEURO: Alert. Cranial nerves II through XII intact. Good gait. Good coordination SKIN: Warm, dry. Normal Color Course Vital Signs Vital signs: Vital Signs Temperature 98.2 F 04/09/25 09:33 Pulse Rate 87 04/09/25 09:33 Respiratory Rate 16 04/09/25 09:33 Blood Pressure 126/69 04/09/25 09:33 Pulse Oximetry 100 04/09/25 09:33 Temperature 98.2 F 04/09/25 09:33 Pulse Rate 94 04/09/25 14:29 Respiratory Rate 20 04/09/25 14:29 Blood Pressure 118/82 04/09/25 14:29 Pulse Oximetry 99 04/09/25 14:29 Medical Decision Making [facility] Narrative Medical decision making narrative: 31-year-old male present to the emergency department for evaluation after having a syncopal episode. Patient was orthostatic upon arrival to the emergency department. Patient was willing to get an IV and have IV fluid resuscitation. Patient is currently afebrile with no leukocytosis hemoglobin of 17.1 with no significant abnormalities on his CMP. Patient was mildly orthostatic but did feel improved after 2 L of lactated Ringer's. Patient had negative head CT, cervical spine CT thoracic spine CT. Chest x-ray shows no acute cardiopulmonary abnormality. D-dimer was negative. Cardiac enzyme was negative. Patient states he did not feel that he was dehydrated. Patient was offered admission for further cardiac evaluation for the syncopal episode but patient declined. Patient was aware of the risk of delaying the additional medical workup but patient does prefer to have outpatient follow-up with his primary care physician. Patient was advised to refrain from exertional activity and to have close follow-up and was also educated on reasons to return to the emergency department. Differential Diagnosis Differential Diagnosis: Subdural hematoma, subarachnoid hemorrhage, cervical spine fracture, lumbar fracture, cardiac syncope, orthostatic hypotension Vital Signs Vital Signs: Vital Signs Temperature 98.2 F 04/09/25 09:33 Pulse Rate 87 04/09/25 09:33 Respiratory Rate 16 04/09/25 09:33 Blood Pressure 126/69 04/09/25 09:33 Pulse Oximetry 100 04/09/25 09:33 Temperature 98.2 F 04/09/25 09:33 Pulse Rate 94 04/09/25 14:29 Respiratory Rate 20 04/09/25 14:29 Blood Pressure 118/82 04/09/25 14:29 Pulse Oximetry 99 04/09/25 14:29 Lab Data Lab results reviewed: Yes I reviewed the patient's lab results. 04/09/25 09:46 04/09/25 09:46 Labs: Lab Results 04/09/25 04/09/25 Range/Units 09:46 12:12 WBC 5.9 (4.5-10.0) K/mm3 RBC 6.01 (4.6-6.20) M/mm3 Hgb 17.1 (14.0-18.0) g/dL Hct 51.8 (42.0-52.0) % MCV 86.2 (80-100) fl MCH 28.5 (26-34) pg MCHC 33.0 (32-36) g/dl RDW 12.6 (11.5-14.5) % Plt Count 257 (150-375) k/mm3 MPV 9.4 (7.4-10.4) fl Immature Gran % (Auto) 0.3 (0-0.5) % Neut % (Auto) 67.6 (45.5-73.1) % Lymph % (Auto) 23.3 (18.3-44.2) % [place] % (Auto) 6.1 (2.6-8.5) % Eos % (Auto) 2.2 (0-4.4) % Baso % (Auto) 0.5 (0.2-1.2) % Lymph # (Auto) 1.37 (0.9-3.2) K/mm3 [place] # (Auto) 0.4 (0.1-0.6) K/mm3 Eos # (Auto) 0.1 (0-0.3) K/mm3 Baso # (Auto) 0.0 (0.0-0.1) K/mm3 Abs Immat Gran (auto) 0.02 (0.00-0.031) K/mm3 Absolute Neuts (auto) 4.0 (1.3-6.7) K/mm3 Absolute Nucleated RBC 0.000 (0.0-0.012) K/mm3 Nucleated RBC % 0.0 (0.0-0.2) % D-Dimer < 0.27 (<0.48) ug/mL Sodium 139 (137-145) mmol/L Potassium 4.3 (3.4-5.0) mmol/L Chloride 101 (98-107) mmol/L Carbon Dioxide 32 H (22-30) mmol/L Anion Gap 6 (4-12) mmol/L BUN 13 (9-20) mg/dL Creatinine 1.12 (0.7-1.3) mg/dL Estim Creat Clear Calc 89 ml/min Estimated GFR > 60 (59 - ) Glucose 86 (65-110) mg/dL Calcium 9.4 (8.4-10.2) mg/dL Magnesium 2.0 (1.6-2.3) mg/dL Total Bilirubin 0.9 (0.2-1.3) mg/dL AST 21 (17-59) U/L ALT 17 (6-50) U/L Alkaline Phosphatase 45 (38-126) U/L Troponin I < 0.012 (0.000-0.034) ng/mL Total Protein 7.7 (6.3-8.2) g/dL Albumin 4.7 (3.5-5.1) g/dL TSH (Reflex) 1.560 (0.465-4.68) uIU/mL Imaging Data Radiologist's impression: Impressions Chest X-Ray 04/09/25 10:05 Impression: No acute cardiopulmonary abnormality. Head CT 04/09/25 13:15 Impression: 1.No acute intracranial abnormality. Cervical Spine CT 04/09/25 13:20 Impression: No acute abnormality. Thoracic Spine CT 04/09/25 13:36 Impression: No acute abnormality. ECG Data EKG #1: Attestation: I personally reviewed and interpreted this ECG as follows: Discharge Plan Discharge Clinical Impression: Back pain Syncope Qualifiers: Syncope type: unspecified Qualified Code(s): R55 - Syncope and collapse Patient Disposition: Home Condition: Stable Instructions: Antibiotic Form, Syncope (DC), Back Pain (ED) Additional Instructions: Tylenol and ibuprofen for pain control. Flexeril for muscle spasm. You were offered admission for additional syncope workup but you declined and preferred to have outpatient follow-up. Refrain from any exertional activity. Have close follow-up with your primary care physician. If you have any worsening symptoms then please call or return to the emergency department. Patient Language: Sinhala Prescriptions: New cyclobenzaprine 10 mg tablet 10 mg PO BID PRN (Reason: muscle spasm) Qty: 14 0RF No Action esomeprazole magnesium [Nexium] 20 mg Capsule,Delayed Release(Dr/Ec) 20 mg PO DAILY Follow-up/Referrals: Corby,HALEIGH JonesP [Primary Care Provider, Unknown]
[2025-04-09 12:47] LABS: Troponin I < 0.012 ng/mL (0.000-0.034)
[2025-04-09] MEDS: KETOROLAC 15 MG/ML VIAL (*BKC) IV PUSH (12:47)
[2025-04-09 12:55] LABS: Magnesium 2.0 mg/dL (1.6-2.3)
--- OUTSIDE RECORDS SUMMARY | 2025-04-09 12:56 | XMS_ITS | Clinical Summary ---
Author Organization [facility] Address [address] [place] [id number] Care Team Providers Care Card Processing Clerk Name Role Phone Unavailable Primary Care Provider Unavailabl e Social History Tobacco Use Types Packs/Day Years Used Date Smoking Tobacco: Never Assessed Sex and Gender Information Value Date Recorded Sex Assigned at Not on file Legal Sex Male 7:42 PM CDT Gender Identity Not on file Sexual Orientation Not on file Plan of Treatment Health Maintenance Due Date Last Done Comments Annual Physical 1989 Hepatitis C 2004 DTaP, Tdap and Td Vaccines ( 1 - Tdap) 2005 Hepatitis B Vaccines (1 of 3 - 19+ 3-dose series) 2005 HPV Vaccines (1 - 3-dose SCD M series) 2013 COVID-19 Vaccine ( - 2024-2 6 season) 2025 Influenza Adult (#1) 2025 Hepatitis A Vaccines Aged Out No long er eligible based on patient's age to complete this topic Meningococcal B Vaccine Aged Out No l onger eligible based on patient's age to complete this topic Meningococcal Vaccine Aged Out No ortega gino eligible based on patient's age to complete this topic Pneumococcal Vaccine: Pediat rics (0 to 5 Years) and At-Risk Patients (6 to 49 Years) Aged Out No longer eligible b ased on patient's age to complete this topic RSV Immunizations Under 20 Months Aged Out No longer eligible based on patient's age to complete this topic
--- OUTSIDE RECORDS SUMMARY | 2025-04-09 12:56 | XMS_ITS | Clinical Summary ---
[facility] Address [address] [place] [address] Care Team Providers Care Tug Hand Name Role Phone Lexus Tavarez NP Primary Care Provider [phone] Allergies No known active allergies Medications esomeprazole [...] 09/24/2023 Assessment & Plan (05/19/2024 8:23 AM BOTTLING LINE ATTENDANT): Metadate ER is not lasting all day. [...] in 6 months. I checked their [place] MALT LOADER sheet, and it was consistent with prescribed [...] on file Legal Sex Male 5:04 AM BOTTLING LINE ATTENDANT Gender Identity Not on file Sexual Orientation Not on file Last Filed Vital Signs Vital Sign Reading Time Taken Comments Blood Pressure 131/84 07/27/2024 11:26 AM BOTTLING LINE ATTENDANT Pulse 103 07/27/2024 11:26 AM BOTTLING LINE ATTENDANT Temperature 37.2 C (99 F) 07/27/2024 11:26 AM BOTTLING LINE ATTENDANT Respiratory Rate 16 07/27/2024 11:26 AM BOTTLING LINE ATTENDANT Oxygen Saturation 99% 07/27/2024 11:26 AM BOTTLING LINE ATTENDANT Inhaled Oxygen Concentration - - Weight 122.5 kg (270 lb) 07/27/2024 11:26 AM BOTTLING LINE ATTENDANT Height 185.4 cm (6' 1) 07/27/2024 11:26 AM BOTTLING LINE ATTENDANT Body Mass Index 35.62 07/27/2024 11:26 AM BOTTLING LINE ATTENDANT Plan of Treatment Health Maintenance Due Date [...] - GENERAL OR DERABLES Final Result [facility] [address] Department [place] [address] from Last 3 Months or Most Recently Relevant to Health Maintenance Insurance [employer]™ OOS [employer] OOS Care Teams Tug Hand Relationship Specialty Start Date End Date Lexus Tavarez NP [address] [facility] [address] [place] [address] PCP - General Family Medicine 11/06/24
--- NOTE | 2025-04-09 13:13 | PC.NURSE ---
Pt to CT scan via stretcher at this time, fluids infusing.
[2025-04-09 13:39] LABS: Thyroid Stimulating Hormone Reflex 1.560 uIU/mL (0.465-4.68)
== END 2025-04-09 14:50 | disposition home or self-care (01) ==
PROVIDERS: Emergency Medicine; Emergency Provider Emergency Medicine; PCP Nurse Practitioner Family
DX: R55 Syncope and collapse (principal); S39.92XA Unspecified injury of lower back, initial encounter; K21.9 Gastro-esophageal reflux disease without esophagitis; Z87.891 Personal history of nicotine dependence; W18.39XA Other fall on same level, initial encounter
CPT/HCPCS: 36415; 70450; 71046; 72125; 72128; 80053; 82948; 83735; 84443; 84484; 85025; 85380; 93005; 96361; 96374; 99284; J1885; J7120